=== PATIENT | female | born 1945 | race Caucasian/White ===

== ENCOUNTER → 2017-08-07 | Outpatient (CLI) | payer OTHER ==
[~2017-08-07] MED LIST: AFRIN15 ML NS; ALLEGRA ALLERG180 MG PO; ALPRAZOLAM 0.0.25 M1 PO; ASPIRIN81 M2 PO; AZELAST NASAL137 MC1 NASAL; CALCIUM 500 +1 EAC5 PO; CRESTOR10 MG PO; CYMBALTA30 MG PO; FUROSEMIDE 20 M20 M1 PO; HYDROCHLOROTH12.5 MG PO; HYDROCODONE-AP1 EAC6 PO; IBUPROFEN 200200 M1 PO; ISOSORBIDE MONO30 M1 PO; KLOR-CON 1010 MEQ PO; LASIX 20 MG TAB20 MG PO; LEVOTHYROXIN0.025 MG PO; LEVOTHYROXIN0.075 MG PO; LEVOXYL; LOPRESSOR25 PO; MEDROL DOSPAK21 TA1 PO; NORCO 5-325 TA1 EACH PO; PRILOSEC 10MG C10 M1 PO; PROMETHAZINE-C120 ML PO; TRAZODONE 150150 M1 PO; TRAZODONE HCL50 MG PO; VICODIN 5-5001 EACH PO; XANAX1 MG PO; ZANAFLEX4 MG PO
--- NOTE | 2017-08-20 08:34 | PAINCON ---
[address] [address] PAIN MANAGEMENT CONSULTATION Name: KASSY FLORES Room: [facility] [place]#: [id number] Admission: 08/07/17 Attend Phys: Osmany Parada MD Discharge: Date of : 41 Report #: [id number] THIS REPORT FOR: //name// CC: Jatin Parada DATE OF SERVICE: 08/07/2017 FOLLOWUP COMPLAINT: "Having pain in the back of my head like I had before and the shots helped." FOLLOWUP HISTORY: The patient is a 72-year-old female who has been seen in the pain clinic because of occipital neuralgia. She has suffered from pain and discomfort in the cervical area. She is experiencing pain similar to that which she had in the past. It involves the lower portion of her occipital area. Notes pain radiating to the lateral side of her head in the temporal area bilaterally. Notes some discomfort and perception of discomfort in the posterior eye area similar to that which she had in the past, which improved with occipital nerve injections. She has returned today for treatment to help combat her pain and discomfort. She rates her discomfort as a 6 without treatment. She finds that hydrocodone is somewhat helpful and takes it on occasion. Denies any pain radiating down into her shoulders, arms or forearm. No numbness or tingling in her hands or fingers. Does have some soreness to palpation in her shoulder areas. Initially noticed this pain after she had fallen and hit her head in the occipital area. Does not think that this headache has anything to do with her sinus headaches. She has had those for years. ALLERGIES: SULFA. MEDICATIONS: Alprazolam 1 mg t.i.d., 81 mg aspirin, calcium 500 mg b.i.d., Cymbalta 30 mg b.i.d., Krystal 180 mg, Lasix 20 mg, hydrocodone 2 tablets q. 6 hours p.r.n. pain, Advil 200 mg t.i.d., isosorbide 0.5 mg daily, levothyroxine 0.025 mg, Prilosec 10 mg, Afrin 15 use p.r.n., potassium 10 mEq t.i.d., Zanaflex 4 mg at bedtime, and trazodone 50 mg at bedtime. PHYSICAL EXAMINATION: VITAL SIGNS: Blood pressure 127/57, heart rate 100, respiratory rate 16, room air saturation 97%. Height 4 feet 10 inches, weight 140 pounds, BMI is 29, temperature 98.3. GENERAL: Well nourished, in no apparent distress. HEENT: Head is atraumatic. Eyes, extraocular muscles intact. Conjunctival and sclerae. No nystagmus. Ears, hearing is grossly normal. Nose, no deformity, no discharge. Mouth, moist membranes. LUNGS: [place] [address] PAIN MANAGEMENT CONSULTATION Name: KASSY FLORES Room: [facility]#: [id number] Admission: 08/07/17 Attend Phys: Osmany Parada MD Discharge: Date of : 41 Report #: [id number] NECK: No JVD or adenopathy, upper motor muscles generally normal with 4+/5 muscle strength in the upper extremities. No complaints of sensory or motor neuron changes in the upper extremities. Palpation in the left and right occipital area reproduce a considerable amount of pain and discomfort and radiate into the affected areas. IMPRESSION: 1. Bilateral occipital neuralgia. 2. Anxiety. 3. Aortic insufficiency. 4. History of chest pain. 5. Chronic diastolic heart failure history. 6. Gastroesophageal reflux disease. The patient states that use of ibuprofen has not caused any GI complaints. 7. Hypertension. 8. History of tricuspid valve insufficiency. 9. Subclinical hypothyroidism. 10. Tremor. RECOMMENDATIONS: We discussed treatment options with the patient. She had a treatment involving the occipital nerve injections bilaterally at the last visit in 09/2016. She did quite well in the interim. She has noticed a recurrence of her pain and discomfort. She will undergo a bilateral occipital nerve injection. Risks and benefits of the procedure were again reviewed and discussed with the patient. They include infection, increased muscle soreness, increased pain, and the patient elects to proceed. PROCEDURE NOTE: The patient was placed in the prone position. Her neck was sterilely prepped with a chlorhexidine solution and allowed to dry. The right occipital area was palpated. The right occipital area was then injected with a 25-gauge needle. The patient states that this was reproducing her pain and discomfort during the time of injection. The patient tolerated this well. The contralateral side was treated in the like fashion and a total of 5 mL of 0.5% bupivacaine and 40 mg triamcinolone was injected. This was on the left and the right. The patient tolerated the procedure well. She was taken to the recovery room where she was monitored. She has a history of dizziness. She remained in the pain clinic for an appropriate amount of time. She will call us if she has any problems with her medications. The patient was assisted to her car by the registered nurse. We would like to thank you for letting us participate in her care. <ELECTRONICALLY SIGNED> By: Osmany Parada MD 08/20/17 0834 1214 2140N. Arturo Parada MD /CARLINE
== END | disposition home or self-care (01) ==
LOC: M.PC 02:25
DX: M54.81 Occipital neuralgia (principal); F41.9 Anxiety disorder, unspecified; I35.1 Nonrheumatic aortic (valve) insufficiency; I11.0 Hypertensive heart disease with heart failure; I50.32 Chronic diastolic (congestive) heart failure; K21.9 Gastro-esophageal reflux disease without esophagitis; E02 Subclinical iodine-deficiency hypothyroidism; R25.1 Tremor, unspecified; Z88.8 Allergy status to other drugs, medicaments and biological substances; Z79.899 Other long term (current) drug therapy

== ENCOUNTER → 2017-09-26 | Outpatient (CLI) | payer OTHER ==
[2017-09-26 15:10] LABS: CREATININE 0.9 mg/dL (0.6-1.3)
== END ==
LOC: M.CRD 09-24 13:04 → M.LAB 14:21 → M.ULTRA 15:00
PROVIDERS: Internal Medicine
DX: G81.91 Hemiplegia, unspecified affecting right dominant side (principal); G45.9 Transient cerebral ischemic attack, unspecified

== ENCOUNTER → 2017-10-01 | Outpatient (CLI) | payer OTHER ==
--- NOTE | 2017-10-01 15:22 | 2DMMODE ---
[place] [address] 2 D/M-MODE ECHOCARDIOGRAM Name: KASSY FLORES Room: [facility]#: [id number] Admission: 10/01/17 Attend Phys: Magi Reyes, Discharge: Date of : 41 Date of Service: 10/01/17 1521 Report #: [id number] THIS REPORT FOR: //name// APPROVED REPORT Study performed: 10/01/2017 12:55:31 EXAM: Comprehensive 2D, Doppler, and color-flow Echocardiogram with Bubble Study Patient Location: Out-Patient Status: routine BSA: 1.56 HR: 92 bpm BP: 118/65 mmHg Other Information Study Quality: Good Indications CVA/TIA Echo Enhancing Agent Indication: Rule out Shunt Agent(s) / Amount(s) Used: Agitated Saline 10 cc 2D Dimensions LVEF(%): 78.57 (>50%) IVSd: 9.98 (7-11mm) LVOT Diam: 18.18 (18-24mm) LVDd: 39.09 mm PWd: 8.17 (7-11mm) Ascending Ao: 28.60 (22-36mm) LVDs: 20.88 (25-40mm) Aortic Root: 29.85 mm Moya's LVEF: 78.57 % Volumes Left Atrial Volume (Systole) LA ESV Index: 15.40 mL/m2 Aortic Valve AoV Peak Carlito.: 1.01 m/s AO Peak Gr.: 4.12 mmHg LVOT Max P.00 mmHg AO Mean Gr.: 2.19 mmHg LVOT Mean P.70 mmHg LVOT Max V: 0.87 m/s AO V2 VTI: 19.14 cm LVOT Mean V: 0.62 m/s NEWTON (VTI): 2.19 cm2 LVOT V1 VTI: 16.15 [place] [address] 2 D/M-MODE ECHOCARDIOGRAM Name: KASSY FLORES Room: [facility]#: [id number] Admission: 10/01/17 Attend Phys: Magi Reyes, Discharge: Date of : 41 Date of Service: 10/01/17 1521 Report #: [id number] AI Peach: 2.91 m/s2 AI PHT: 409.24 ms Mitral Valve E/A Ratio: 0.62 MV Decel. Time: 165.76 ms MV E Max Carlito.: 0.52 m/s MV PHT: 48.07 ms MVA (PHT): 4.58 cm2 TDI E/Lateral E': 8.67 E/Medial E': 7.43 Medial E' Carlito.: 0.07 m/s Lateral E' Carlito.: 0.06 m/s Pulmonary Valve PV Peak Carlito.: 0.78 m/s PV Peak Gr.: 2.45 mmHg Tricuspid Valve TR Peak Gr.: 17.69 mmHg RVSP: 22.69 mmHg Left Ventricle The left ventricle is normal size. There is normal LV segmental wall motion. There is normal left ventricular wall thickness. Left ventricular systolic function is normal. The left ventricular ejection fraction is within the normal range. LVEF is 55-60%. Grade I - abnormal relaxation pattern. Right Ventricle The right ventricle is normal size. The right ventricular systolic function is normal. Atria The left atrium size is normal. Interatrial septum is intact without evidence of ASD or PFO. The right atrium size is normal. Aortic Valve Aortic valve leaflets are mildly thickened. Mild to moderate aortic regurgitation. There is no aortic valvular stenosis. Mitral Valve The mitral valve is normal in structure. Mild mitral regurgitation. No evidence of mitral valve stenosis. Tricuspid Valve The tricuspid valve is normal in structure[place] [address] 2 D/M-MODE ECHOCARDIOGRAM Name: KASSY FLORES Room: [facility]#: [id number] Admission: 10/01/17 Attend Phys: Magi Reyes, Discharge: Date of : 41 Date of Service: 10/01/17 1521 Report #: [id number] regurgitation. The RVSP is __22.7 mmHg. Pulmonic Valve The pulmonary valve is normal in structure. Mild pulmonic regurgitation. Great Vessels The aortic root is normal in size. IVC is normal in size and collapses with >50% inspiration Pericardium There is no pericardial effusion. <Conclusion> There is normal left ventricular wall thickness. Left ventricular systolic function is normal. The left ventricular ejection fraction is within the normal range. LVEF is 55-60%. Grade I - abnormal relaxation pattern. The right ventricle is normal size. The left atrium size is normal. Aortic valve leaflets are mildly thickened. Mild to moderate aortic regurgitation. There is no aortic valvular stenosis. The mitral valve is normal in structure. Mild mitral regurgitation. IVC is normal in size and collapses with >50% inspiration There is no pericardial effusion. There is normal LV segmental wall motion. <ELECTRONICALLY SIGNED> By: Brandan Clark MD, FACC 10/01/17 1521 152 152 Brandan Clark MD, FACC /INF
== END ==
LOC: M.CRD 12:22
DX: I08.0 Rheumatic disorders of both mitral and aortic valves (principal); I50.32 Chronic diastolic (congestive) heart failure; G45.9 Transient cerebral ischemic attack, unspecified

== ENCOUNTER → 2017-11-17 | Outpatient (CLI) | payer OTHER ==
--- NOTE | 2017-11-18 22:15 | EEG ---
[address] [address] EEG STUDY REPORT Name: SANDRAKASSY J Room: [facility]#: [id number] Admission: 11/17/17 Attend Phys: Magi Reyes MD, Discharge: Date of : 41 Report #: [id number] THIS REPORT FOR: //name// CC: Jatin Rene DATE OF SERVICE: 11/17/2017 This patient is being evaluated for a question of seizure. EEG was done by placing the electrode by standard 10-20 system of electrode placement. Both referential and sequential montages were used for recording. Background activity in this patient's EEG is about 9 Hz and 30 microvolt. It is a symmetrical activity. Photic stimulation was unremarkable. This patient became drowsy and that is associated with bilateral slowing and vertex sharp waves and sleep spindles. Throughout the record, no active epileptiform activity was noticed. Moderate amount of artifact is present. IMPRESSION: This patient's electroencephalogram demonstrate moderate amount of artifact, but no active epileptiform activity was noticed during this record. Thank you very much for this referral. <ELECTRONICALLY SIGNED> By: Chaz Rene MD 11/18/17 2215 40 54Pardiana Rene MD /nt
== END ==
LOC: M.CRD 12:22
DX: G45.9 Transient cerebral ischemic attack, unspecified (principal)

== ENCOUNTER → 2017-12-12 | Outpatient (CLI) | payer OTHER | LOC: M.MRI 10:26 | DX: R25.1 Tremor, unspecified (principal); F41.9 Anxiety disorder, unspecified; R42 Dizziness and giddiness ==

== ENCOUNTER → 2018-02-11 | Outpatient (CLI) | payer OTHER ==
[2018-02-11 15:59] LABS: ABSOLUTE BASOPHILS 0.1 thou/uL (0.0-0.2); ABSOLUTE EOSINOPHILS 0.4 thou/uL (0.0-0.7); ABSOLUTE LYMPHOCYTES 1.8 thou/uL (0.8-5.3); ABSOLUTE MONOCYTES 0.5 thou/uL (0.0-1.2); ABSOLUTE NEUTROPHILS 5.7 thou/uL (1.6-8.1); BASOPHILS 1.2 %; EOSINOPHILS 4.3 %; HEMATOCRIT 38.1 % (37.0-47.0); HEMOGLOBIN 12.8 gm/dL (12.0-15.0); LYMPHOCYTES 20.7 %; MCH 30.7 pg (26.0-34.0); MCHC 33.7 g/dL (28.0-37.0); MCV 91.3 fL (80.0-100.0); MONOCYTES 6.2 %; MPV 7.6 fl. (7.2-11.1); NUCLEATED RBCS 0 /100WBC; PLATELET COUNT* 326 thou/uL (150-400); POLYS 67.6 %; RBC 4.17 mil/uL (4.20-5.00); RDW-CV 13.2 % (10.5-14.5); WBC 8.5 thou/uL (4.0-11.0)
[2018-02-11 16:07] LABS: CALCIUM 9.3 mg/dL (8.5-10.1); CREATININE 0.7 mg/dL (0.6-1.3); POTASSIUM 3.9 mmol/L (3.5-5.1); TOTAL BILIRUBIN 0.3 mg/dL (<0.1-1.0); TOTAL PROTEIN 7.9 g/dL (6.4-8.2)
[2018-02-11 17:06] LABS: ESR (SEDRATE) 36 mm/hr (0-30)
[2018-02-12 15:12] LABS: IgA 157 mg/dL (64-422); IgG 746 mg/dL (700-1600); IgM 17 mg/dL (26-217)
[2018-02-16 11:10] LABS: ANA INTERPRETATION Negative (Negative); ANTI-SSA <0.2 AI (0.0-0.9)
== END ==
LOC: M.MRI 15:17 → M.LAB 15:17 → M.MRI 16:30
PROVIDERS: Psychiatry & Neurology Neuromuscular Medicine
DX: G45.8 Other transient cerebral ischemic attacks and related syndromes (principal); R42 Dizziness and giddiness; F41.9 Anxiety disorder, unspecified

== ENCOUNTER → 2018-04-21 | Outpatient (CLI) | payer OTHER | LOC: M.RAD 04-20 11:00 | DX: Z12.31 Encounter for screening mammogram for malignant neoplasm of breast (principal); M19.90 Unspecified osteoarthritis, unspecified site ==

== ENCOUNTER → 2018-09-03 | Outpatient (CLI) | payer OTHER | LOC: M.RAD 13:45 | DX: M54.42 Lumbago with sciatica, left side (principal); G89.29 Other chronic pain; J34.89 Other specified disorders of nose and nasal sinuses ==

== ENCOUNTER → 2018-10-27 | Outpatient (CLI) | payer OTHER ==
--- NOTE | 2018-10-27 13:33 | 2DMMODE ---
[place] [address] 2 D/M-MODE ECHOCARDIOGRAM Name: KASSY FLORES Room: [facility]#: [id number] Admission: 10/27/18 Attend Phys: Jada Costa, Discharge: Date of : 41 Date of Service: 10/27/18 1332 Report #: [id number] THIS REPORT FOR: //name// APPROVED REPORT Study performed: 10/27/2018 12:39:05 EXAM: Comprehensive 2D, Doppler, and color-flow Echocardiogram Patient Location: Out-Patient BSA: 1.64 HR: 85 bpm BP: 118/65 mmHg Other Information Study Quality: Good Indications Aortic Valve Disease 2D Dimensions IVSd: 11.71 (7-11mm) LVOT Diam: 20.00 (18-24mm) LVDd: 37.91 mm PWd: 7.87 (7-11mm) Ascending Ao: 28.13 (22-36mm) LVDs: 24.64 (25-40mm) Aortic Root: 28.47 mm Volumes Left Atrial Volume (Systole) LA ESV Index: 14.60 mL/m2 Aortic Valve AoV Peak Carlito.: 1.06 m/s AO Peak Gr.: 4.52 mmHg LVOT Max P.73 mmHg AO Mean Gr.: 2.70 mmHg LVOT Mean P.61 mmHg LVOT Max V: 0.97 m/s AO V2 VTI: 23.98 cm LVOT Mean V: 0.57 m/s NEWTON (VTI): 2.79 cm2 LVOT V1 VTI: 21.28 cm AI [place]: 3.59 m/s2 AI PHT: 327.39 ms Mitral Valve E/A Ratio: 0.62 MV Decel. Time: 194.76 ms MV E Max Carlito.: 0.44 m/[place] [address] 2 D/M-MODE ECHOCARDIOGRAM Name: KASSY FLORES Room: [facility]#: [id number] Admission: 10/27/18 Attend Phys: Jada Costa, Discharge: Date of : 41 Date of Service: 10/27/18 1332 Report #: [id number] MV PHT: 56.48 ms MVA (PHT): 3.90 cm2 TDI E/Lateral E': 6.29 E/Medial E': 4.89 Medial E' Carlito.: 0.09 m/s Lateral E' Carlito.: 0.07 m/s Pulmonary Valve PV Peak Carlito.: 0.79 m/s PV Peak Gr.: 2.51 mmHg Tricuspid Valve RAP Estimate: 5.00 mmHg TR Peak Gr.: 17.07 mmHg RVSP: 22.07 mmHg PA Pressure: 22.07 mmHg Left Ventricle The left ventricle is normal size. There is normal LV segmental wall motion. There is normal left ventricular wall thickness. Left ventricular systolic function is normal. LVEF is 55-60%. Grade I - abnormal relaxation pattern. Right Ventricle The right ventricle is normal size. The right ventricular systolic function is normal. Atria The left atrium size is normal. The right atrium size is normal. Aortic Valve The aortic valve is normal in structure. Moderate aortic regurgitation. There is no aortic valvular stenosis. Mitral Valve The mitral valve is normal in structure. Mild mitral regurgitation. No evidence of mitral valve stenosis. Tricuspid Valve The tricuspid valve is normal in structure. Mild tricuspid regurgitation. No pulmonary hypertension. Pulmonic Valve The pulmonary valve is normal in structure. [place] [address] 2 D/M-MODE ECHOCARDIOGRAM Name: KASSY FLORES Room: [facility]#: [id number] Admission: 10/27/18 Attend Phys: Jada Costa, Discharge: Date of : 41 Date of Service: 10/27/18 1332 Report #: [id number] Great Vessels The aortic root is normal in size. IVC is normal in size and collapses >50% with inspiration. Pericardium There is no pericardial effusion. <Conclusion> The left ventricle is normal size. There is normal left ventricular wall thickness. Left ventricular systolic function is normal. LVEF is 55-60%. Grade I - abnormal relaxation pattern. Moderate aortic regurgitation. Mild mitral regurgitation. Mild tricuspid regurgitation. No pulmonary hypertension. Mild pulmonic regurgitation. IVC is normal in size and collapses >50% with inspiration. <ELECTRONICALLY SIGNED> By: Akin Madera MD, FACC 10/27/18 133 31 31 Akin Madera MD, FACC /INF
== END ==
LOC: M.CRD 12:00
DX: I08.8 Other rheumatic multiple valve diseases (principal); I11.0 Hypertensive heart disease with heart failure; I50.32 Chronic diastolic (congestive) heart failure; Z88.2 Allergy status to sulfonamides

== ENCOUNTER → 2019-05-26 | Outpatient (CLI) | payer OTHER | LOC: M.RAD 13:20 | DX: Z12.31 Encounter for screening mammogram for malignant neoplasm of breast (principal) ==

== ENCOUNTER → 2019-08-31 | Outpatient (CLI) | payer OTHER | LOC: M.RAD 16:55 | DX: M43.12 Spondylolisthesis, cervical region (principal) ==

== ENCOUNTER 2020-03-23 12:13 | Inpatient (IN) | payer OTHER ==
[~2020-03-23] VITALS: Ht 152.4 cm; Wt 68.1 kg
--- NOTE | ~2020-03-23 | PROC ---
[address] [address] PROCEDURE REPORT Name: KASSY FLORES Room: [address] IN M.R.#: [id number] Admission: 03/23/20 Attend Phys: Alex Crabtree MD Discharge: 03/28/20 Date of : 41 Report #: [id number] THIS REPORT FOR: //name// cc: Jatin Pettit MD, David L. MD ~ THIS REPORT FOR: //name// For GI report, please see the Provation report in Perceptive 7 content. By: [facility]2Medical Records Staff MIRNA /GARY
[~2020-03-23 12:13] MED LIST changes: -HYDROCODONE-AP1 EAC6 PO; -LEVOTHYROXIN0.075 MG PO; +NORCO 5-325 TA1 EAC2 PO; +SYNTHROID75 MCG PO
[2020-03-23 12:20] VITALS: BP 148/68
[2020-03-23] MEDS ORDERED: PLAVIX 75 MG TA75 MG PO (12:23)
[2020-03-23 13:50] LABS: ABSOLUTE BASOPHILS 0.1 thou/uL (0.0-0.2); ABSOLUTE EOSINOPHILS 0.4 thou/uL (0.0-0.7); ABSOLUTE LYMPHOCYTES 1.7 thou/uL (0.8-5.3); ABSOLUTE MONOCYTES 0.7 thou/uL (0.0-1.2); ABSOLUTE NEUTROPHILS 6.2 thou/uL (1.6-8.1); BASOPHILS 1.1 %; EOSINOPHILS 4.7 %; HEMATOCRIT 40.2 % (37.0-47.0); HEMOGLOBIN 14.2 gm/dL (12.0-15.0); LYMPHOCYTES 18.8 %; MCH 31.9 pg (26.0-34.0); MCHC 35.2 g/dL (28.0-37.0); MCV 90.5 fL (80.0-100.0); MONOCYTES 7.5 %; MPV 6.9 fl. (7.2-11.1); NUCLEATED RBCS 0 /100WBC; PLATELET COUNT* 345 thou/uL (150-400); POLYS 67.9 %; RBC 4.44 mil/uL (4.20-5.00); WBC 9.1 thou/uL (4.0-11.0)
[2020-03-23 13:58] LABS: CALCIUM 9.7 mg/dL (8.5-10.1); CREATININE 0.8 mg/dL (0.6-1.3); POTASSIUM 4.2 mmol/L (3.5-5.1)
[2020-03-23 14:00] LABS: INR 1.1; PROTIME 11.1 Seconds (9.20-11.50)
[2020-03-23 14:03] LABS: ALBUMIN 4.5 g/dL (3.4-5.0); TOTAL BILIRUBIN 0.3 mg/dL (<0.1-1.0); TOTAL PROTEIN 8.8 g/dL (6.4-8.2)
[2020-03-23 14:58] LABS: URINE BILIRUBIN NEGATIVE (Negative); URINE BLOOD TRACE (Negative); URINE CLARITY CLEAR; URINE COLOR YELLOW; URINE GLUCOSE-RANDOM NEGATIVE (Negative); URINE KETONES NEGATIVE (Negative); URINE LEUKOCYTES-REFLEX TRACE (Negative); URINE NITRITE-REFLEX NEGATIVE (Negative); URINE PROTEIN NEGATIVE (Negative); URINE UROBILINOGEN 0.2 E.U./dl (0.2-1.0)
[2020-03-23 15:08] LABS: MUCUS None Seen strn/LPF (None Seen); SQUAMOUS >10 Many /LPF (0-3)
[2020-03-23 15:09] LABS: BACTERIA-REFLEX 1-9 Few /HPF (None Seen); URINE RBC 0-2 Rare /HPF (0-2); URINE WBC-REFLEX 0-5 Rare /HPF (0-5)
[2020-03-23 15:10] LABS: CASTS None Seen /LPF (None Seen); CRYSTALS None Seen /LPF (None Seen)
[2020-03-23 19:47] VITALS: BP 137/55
[2020-03-23 23:00] VITALS: BP 146/63
--- NOTE | 2020-03-24 05:43 | NUR ---
Admission last evening with abdominal pain, nausea and black stools and diarrhea. The pain has been worse. She did get mag citrate in the ED. She did end up having a large amount of incontinent loose stool, it was brown, not black. Vitals are stable she has had nothing by mouth since midnoght. Will continue to monitor.
[2020-03-24 07:35] VITALS: BP 119/45
[2020-03-24 10:12] LABS: HEMATOCRIT 38.7 % (37.0-47.0); HEMOGLOBIN 13.5 gm/dL (12.0-15.0); MCH 32.1 pg (26.0-34.0); MCHC 34.8 g/dL (28.0-37.0); MCV 92.3 fL (80.0-100.0); MPV 7.3 fl. (7.2-11.1); RBC 4.19 mil/uL (4.20-5.00); RDW-CV 13.2 % (10.5-14.5); WBC 7.7 thou/uL (4.0-11.0)
[2020-03-24 10:19] LABS: CALCIUM 8.7 mg/dL (8.5-10.1); CREATININE 0.7 mg/dL (0.6-1.3); MAGNESIUM 2.5 mg/dL (1.8-2.4); POTASSIUM 4.3 mmol/L (3.5-5.1)
--- NOTE | 2020-03-24 13:00 | NUR ---
PT.ALERT AND ORIENTED. AT BEDSIDE. HE CAN ASSIST HER AT DISCHARGE IF NEEDED SHE IS AWARE OF HER POC. TO HAVE EGD AND COLONOSCPY TOMORRW. NO USE OF DME OR HX OF HH/SNF. PLANS TO DISCHARGE HOME WITH NO DISCHARGE NEEDS.
[2020-03-24 15:48] VITALS: BP 126/50
--- NOTE | 2020-03-24 16:42 | EKG ---
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: : 1945 Requested By: Edwar Torres Order Number: [id number] Reading MD: Brandan Clark Measurements Intervals Maynard Rate: 89 P: 51 VA: 152 QRS: 4 QRSD: 85 T: -15 QT: 379 QTc: 462 Interpretive Statements Sinus rhythm Borderline T abnormalities, diffuse leads; consider ischemia Compared to ECG 09/06/2013 16:27:20 T-wave abnormality now present Electronically Signed On 03-24-2020 16:41:46 CDT by Brandan Clark [email or web address] <ELECTRONICALLY SIGNED> By: Brandan Clark MD, [facility] 03/24/20 1641 1623 1623 Brandan Clark MD, [facility] /EPI
--- NOTE | 2020-03-24 17:06 | NUR ---
PT REMAINED ALERT AND ORIENTED. PT RESTING IN BED. BOWEL PREP STARTED. PAIN AND NAUSEA MEDS GIVEN ORDERED. PT CLEANED UP TODAY AFTER BM BLOWOUT. PT DENIES ANY FURTHER NEEDS OR CONCERNS AT THIS TIME. PT ENCOURAGED TO USE CALL LIGHT WHEN NEEDING ASSISTANCE AND WITH ANY QUESTIONS OR CONCERNS. FALL RISK PRECAUTIONS IN PLACE. HOURLY ROUNDING COMPLETED. WILL CONTINUE TO MONITOR.
[2020-03-24 19:43] VITALS: BP 151/64
--- NOTE | 2020-03-25 04:25 | NUR ---
PT A&OX4, ON ROOM AIR, VSS, IV FLUIDS INFUSING ORDERED, BOWEL PREP COMPLETED BY MIDNIGHT, PT NPO SINCE MIDNIGHT FOR 03/25 EGD AND COLONOSCOPY. PAIN MEDS REQUESTED AND GIVEN ORDERED. ASSESSMENTS AND HOURLY ROUNDINGS COMPLETE, WILL CONTINUE TO MONITOR.
[2020-03-25 04:26] LABS: HEMATOCRIT 35.9 % (37.0-47.0); HEMOGLOBIN 12.5 gm/dL (12.0-15.0); MCH 31.8 pg (26.0-34.0); MCHC 34.7 g/dL (28.0-37.0); MCV 91.7 fL (80.0-100.0); MPV 7.6 fl. (7.2-11.1); RBC 3.92 mil/uL (4.20-5.00); RDW-CV 13.1 % (10.5-14.5); WBC 10.3 thou/uL (4.0-11.0)
[2020-03-25 04:44] LABS: CALCIUM 8.4 mg/dL (8.5-10.1); CREATININE 0.6 mg/dL (0.6-1.3); MAGNESIUM 2.3 mg/dL (1.8-2.4); POTASSIUM 3.5 mmol/L (3.5-5.1)
[2020-03-25 05:41] VITALS: BP 151/64
[2020-03-25 08:00] VITALS: BP 144/55
--- NOTE | 2020-03-25 09:20 | NUR ---
taken to egd and colonoscopy via w/c.
[2020-03-25 11:00] VITALS: BP 136/52
[2020-03-25 16:01] VITALS: BP 115/47
--- NOTE | 2020-03-25 18:14 | NUR ---
A&OX 4, WARM AND DRY. STILL C/O SHARP ABD PAIN. HAS RECEIVED 50MCG FENT. X 1 AND HYDROCODONE AT 1130 AND 1800. IV CONTINUES TO INFUSE VIA PUMP AT 50MLS/HR IN RIGHT FOOT. EATING A HEART HEALTHY SOFT DIET AND TOLERATED WITH SOME NAUSEA BUT DID NOT CALL OUT TO LET NURSE KNOW. WILL CONTINUE TO MONITOR.
[2020-03-25 20:00] VITALS: BP 118/62
--- NOTE | 2020-03-26 06:21 | NUR ---
PATIENT SLEPT WELL DURING THIS SHIFT. PT UP TO BSC BY HERSELF WITH PIVOT. PT VOIDS YELLOW URINE. PT WITH NO LOOSE STOOLS DURING THIS SHIFT. PT GIVEN PAIN MEDICATION X1 THIS AM FOR ABDOMINAL PAIN. PT WITH FLUIDS INFUSING PER DR ORDER. PT DENIES NEEDS AT THIS TIME. FREQUENTLY USED ITEMS AND CALL LIGHT WITHIN REACH. SIDERAILS UPX2. WILL CONTINUE TO MONITOR.
[2020-03-26 07:05] VITALS: BP 137/49
[2020-03-26 15:17] VITALS: BP 132/51
[2020-03-26 15:31] VITALS: BP 132/51
[2020-03-26] MEDS ORDERED: OMEPRAZOLE 20 M20 M1 PO (15:35)
--- NOTE | 2020-03-26 16:54 | NUR ---
PT REMAINED ALERT AND ORIENTED. PT RESTING IN BED. PAIN AND NAUSEA MEDS GIVEN ORDERED. PT CLEANED SELF UP IN BATHROOM. FALL RISK PRECAUTIONS IN PLACE. HOURLY ROUNDING COMPLETED. WILL CONTINUE TO MONITOR.
[2020-03-26 22:00] VITALS: BP 127/49; BP 129/50
[2020-03-27 08:20] VITALS: BP 118/69
--- NOTE | 2020-03-27 08:21 | NUR ---
PATIENT HAS SLEPT WELL THROUGHOUT THE NIGHT. VSS ON RA. NO C/O PAIN. MEDICATIONS GIVEN ORDERED AND CHARTED. ASSESSMENT CHARTED. PATIENT IS UP AD-BERTHA AND STEADY. IV RIGHT FOOT-SL. PATIENT INSTRUCTED TO USE CALL LIGHT WHEN NEEDING ASSISTANCE. HOURLY ROUNDS MADE. WILL CONTINUE WITH PLAN OF CARE AND NURSING TO MONITOR.
[2020-03-27 17:00] VITALS: BP 155/69
--- NOTE | 2020-03-27 17:48 | NUR ---
PATIENT RESTING IN BED. PATIENT IS UP AD BERTHA IN ROOM. PATIENT STRAIGHT CATHED X 1 WITH 600ML OUT. WILL RESCAN AFTER NEXT VOID. PATIENT HAS NOT HAD BOWEL MOVEMENT TODAY, MIRALAX AND BISCODYL TABS GIVEN. PATIENT IS BLOATED AND DISTENDED. PATIENT HAS FAIR APPETITE EATING ABOUT 1/4 OF MEALS. PATIENT DENIES ANY PAIN. PATIENT DOES HAVE COMPLAINTS OF NAUSEA, NO VOMITING, ZOFRAN AND PHENERGAN GIVEN. PATIENT DENIES ANY NEEDS AT THIS TIME. CALL LIGHT WITHIN REACH.
[2020-03-27 20:15] VITALS: BP 131/51
--- NOTE | 2020-03-28 07:10 | NUR ---
PT SLEPT WELL AFTER HS MEDS. UP TO BR TO VOID AND STATES SHE HAD A VERY SMALL BM. BLADDER SCAN AFTER VOID SHOWED 25ML IN BLADDER. R FOOT SL IV. ABLE TO USE CALL LITE AND MAKE NEEDS KNOWN.
[2020-03-28 07:15] VITALS: BP 116/46
[2020-03-28] MEDS ORDERED: IMDUR 30 MG TAB30 M1 PO (08:05)
[2020-03-28] MEDS ORDERED: BENTYL 20 MG TA20 M1 PO (08:05)
[2020-03-28] MEDS ORDERED: PROTONIX40 M2 PO (08:05)
[2020-03-28] MEDS ORDERED: AMOX TR-K CLV1 EAC4 PO (08:05)
[2020-03-28 10:01] VITALS: BP 116/46
[2020-03-28 10:56] VITALS: BP 132/51
--- NOTE | 2020-03-28 11:43 | NUR ---
PT.DISCHARGING TODAY. HOME HEALTH ORDERED BUT PT.DECLINED. SHE SAID SHE IS UP IN ROOM BY HERSELF AND IS STEADY. SHE DOES NOT FEEL SHE NEEDS A NURSE. SHE IS CONCERNED WITH GETTING INTO SEE THE DRSalas,HOWEVER. HER DR.IS RETIRING AND A NEW DRSalasIS STARING IN APR. CM CALLED OFFICE. SENT TO NURSES CM. LEFT INFORMATION. 'S NURSE TO CALL AND ARRANGE AN APPT.WITH PT., WITH ONE OF 'S PARTNERS. PT.INFORMED.
[2020-03-28 12:37] VITALS: BP 132/51
--- NOTE | 2020-03-28 12:37 | NUR ---
PT GIVEN DISCHARGE INFORMATION, CARE NOTES, AND PRESCRIPTIONS. IV REMOVED. PT EDUCATED ON FOLLOW UP [facility] GI AND UROLOGY. PCP WILL CALL PT TO SET UP APPT. IV REMOVED. PT DENIED ANY FURTHER QUESTIONS OR CONCERNS AT THIS TIME. FALL RISK PRECAUTIONS IN PLACE. HOURLY ROUNDING COMPLETED. PT LEFT VIA WHEELCHAIR WITH NURSING STAFF TO HOME.
[2020-03-28 13:07] LABS: GLIADIN IGA AB 3 units (0-19)
--- NOTE | 2020-03-31 15:08 | PATH ---
[address] [address] PATHOLOGY RPT PROCEDURE Name: KARYN RUTLEDGE Room: [address] IN .R.#: [id number] Admission: 03/23/20 Date of : 41 Discharge: 03/28/20 Report #: [id number] Path Case #: [id number] [facility] Accession Number: [id number] . 01 Material submitted: . PART A: stomach - ANTRAL BIOPSY FOR GASTRIRTIS PART B: duodenum - DUODENAL BIOPSY FOR DIARRHEA PART C: colon - RANDOM COLON BIOPSIES PART D: rectosigmoid junction - RECTAL SIGMOID POLYP . 01 Clinical history: . ABD PAIN WITH CHANGE IN STOOLS WITH POSSIBLE SIGMOID MASS . 02 Diagnosis: A. 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 . B. Duodenal biopsy: - Normal small intestinal/duodenal mucosa. . C. Random colon biopsies: - Normal colonic mucosa. . D. Rectal sigmoid polyp: - Tubular adenoma, negative for high-grade dysplasia. (PATY:pit 03/31/2020) . Special stain on A: H. pylori immuno QTP 03/31/2020 1243 Local . 02 Electronically signed: . Joni Awad MD, Pathologist NPI- [id number] . 01 Gross description: . A. The specimen is received in formalin, labeled "Karyn Rutledge, antral biopsy" and consists of 3 fragments of pink-osman tissue measuring between 0.3 x 0.2 cm and 0.4 x 0.2 cm which are entirely submitted in A1. . B. The specimen is received in formalin, labeled "Karyn Rutledge, duodenal biopsy" and consists of 3 fragments of pink-osman tissue measuring between 0.2 x 0.2 cm and 0.4 x 0.2 cm which are entirely submitted in B1. . C. The specimen is received in formalin, labeled "Karyn Rutledge, random colon biopsies" and consists of multiple fragments of osman tissue measuring 2.0 x 0.5 x 0.2 cm in aggregate which are entirely submitted [place] [address] PATHOLOGY RPT PROCEDURE Name: KARYN RUTLEDGE Room: [address] IN M.R.#: [id number] Admission: 03/23/20 Date of : 41 Discharge: 03/28/20 Report #: [id number] Path Case #: [id number] D. The specimen is received in formalin, labeled "Bloss, Karyn, rectal sigmoid polyp" and consists of a fragment of osman tissue measuring 0.5 x 0.3 x 0.2 cm which is entirely submitted in D1. (SDY; 03/30/2020) SYU/SYU 03/30/2020 1336 Local . 02 Pathologist provided ICD-10: K29.50, D12.5 . 02 CPT . 696896, [id number], [id number], 448276, [id number] Specimen Comment: A courtesy copy of this report has been sent to [phone] Specimen Comment: [phone], Specimen Comment: Report sent to ,DR HICKS / DR PERRIN Performed at: [address], [place], [place] [id number] MD Alin Witt MD Phone: [phone] Performed at: 02 [facility] [address], [place], [place] [id number] MD Joni Awad MD Phone: [phone]
== END 2020-03-28 12:39 | disposition home or self-care (01) | DRG 371 ==
LOC: M.ERS 12:13 → M.ORTHSURG 17:53 → M.TBA-ER 17:53 → M.ORTHSURG 19:37
PROVIDERS: Nurse Practitioner Family; Personal Emergency Response Attendant; ADMIT Internal Medicine; ATTEND Internal Medicine
PROC: 0DB98ZX Excision of Duodenum, Via Natural or Artificial Opening Endoscopic, Diagnostic (ICD-10-PCS; principal; 2020-03-25)
PROC: 0DBN8ZZ Excision of Sigmoid Colon, Via Natural or Artificial Opening Endoscopic (ICD-10-PCS; principal; 2020-03-25)
DX: A04.9 Bacterial intestinal infection, unspecified (principal); J15.6 Pneumonia due to other Gram-negative bacteria; M19.90 Unspecified osteoarthritis, unspecified site; K27.9 Peptic ulcer, site unspecified, unspecified as acute or chronic, without hemorrhage or perforation; E03.9 Hypothyroidism, unspecified; F41.1 Generalized anxiety disorder; F32.9 Major depressive disorder, single episode, unspecified; Z20.828 Contact with and (suspected) exposure to other viral communicable diseases; G89.29 Other chronic pain; R33.9 Retention of urine, unspecified; K29.70 Gastritis, unspecified, without bleeding; K58.0 Irritable bowel syndrome with diarrhea; D12.6 Benign neoplasm of colon, unspecified; K44.9 Diaphragmatic hernia without obstruction or gangrene; K31.89 Other diseases of stomach and duodenum; Z88.1 Allergy status to other antibiotic agents; Z88.2 Allergy status to sulfonamides; Z90.710 Acquired absence of both cervix and uterus; Z79.899 Other long term (current) drug therapy; Z85.038 Personal history of other malignant neoplasm of large intestine

== ENCOUNTER → 2020-04-24 | Outpatient (CLI) | payer OTHER ==
[~2020-04-24] MED LIST changes: +AMOX TR-K CLV1 EAC4 PO; +BENTYL 20 MG TA20 M1 PO; +IMDUR 30 MG TAB30 M1 PO; +OMEPRAZOLE 20 M20 M1 PO; +PLAVIX 75 MG TA75 MG PO; +PROTONIX40 M2 PO
[2020-04-24 22:06] LABS: IgA 129 mg/dL (64-422); IgG 783 mg/dL (586-1602)
[2020-04-24 23:06] LABS: IgM 13 mg/dL (26-217)
[2020-04-26 14:07] LABS: ANA INTERPRETATION Negative (Negative)
== END ==
LOC: M.LAB 13:56
PROVIDERS: ATTEND Psychiatry & Neurology Neuromuscular Medicine
DX: R42 Dizziness and giddiness (principal); R25.1 Tremor, unspecified

== ENCOUNTER → 2020-05-08 | Outpatient (CLI) | payer OTHER | LOC: M.RAD 12:27 | PROVIDERS: ATTEND Internal Medicine | DX: M81.0 Age-related osteoporosis without current pathological fracture (principal) ==

== ENCOUNTER → 2020-05-19 | Outpatient (CLI) | payer OTHER | LOC: M.NUC 06:56 | PROVIDERS: ATTEND Nurse Practitioner Adult Health | DX: R14.0 Abdominal distension (gaseous) (principal); R68.81 Early satiety; R11.0 Nausea ==